=== PATIENT | male | born 1945 | race Caucasian/White ===

== ENCOUNTER 2020-05-16 02:19 | Observation (INO) ==
[2020-05-16 04:01] LABS: ABS Lymphocytes 0.6 10^3/ul (1.0-4.8); ABS Monocytes 0.5 10^3/ul (0-0.8); ABS Neutrophils 14.3 10^3/ul (1.5-7.7); Eosinophil % 0.1 %; Hematocrit 41 % (42-52); Hemoglobin 14.2 g/dL (14.0-18.0); Lymphocyte % 3.6 %; Mean Corpuscular HGB Conc 34 g/dL (31-36); Mean Corpuscular Hemoglobin 32 pg (27-31); Mean Corpuscular Volume 92 fL (80-94); Mean Platelet Volume 7.4 fL (7.4-10.4); Platelet Count 211 10^3/uL (150-450); Red Blood Count 4.52 10^6 /uL (4.18-5.48); Red Cell Distribution Width 13 % (10-15); White Blood Count 15.4 10^3/uL (3.5-10.8)
[2020-05-16 04:07] LABS: Urine Appearance Cloudy; Urine Bilirubin Negative (Negative); Urine Blood 1+ (Negative); Urine Color Yellow; Urine Glucose Negative (Negative); Urine Ketones Negative (Negative); Urine Nitrite Positive (Negative); Urine Protein 3+(>=500 mg/dL) (Negative); Urine Specific Gravity 1.019 (1.010-1.030); Urine Urobilinogen Negative (Negative)
[2020-05-16 04:19] LABS: ALT 32 U/L (7-52); AST 31 U/L (13-39); Albumin 3.7 g/dL (3.2-5.2); Albumin/Globulin Ratio 1.4 (1-3); Alkaline Phosphatase 60 U/L (34-104); Anion Gap 7 mmol/L (2-11); BUN/Creatinine Ratio 28.4 (8-20); Blood Urea Nitrogen 29 mg/dL (6-24); CO2 Carbon Dioxide 25 mmol/L (22-32); Calcium 8.6 mg/dL (8.6-10.3); Chloride 101 mmol/L (101-111); EGFR African American 86.9 (>60); EGFR Non-African American 71.8 (>60); Globulin 2.7 g/dL (2-4); Glucose 108 mg/dL (70-100); Magnesium 1.7 mg/dL (1.9-2.7); Potassium 4.1 mmol/L (3.5-5.0); Sodium 133 mmol/L (135-145); Total Protein 6.4 g/dL (6.4-8.9); Urine Bacteria 1+ (Absent); Urine Red Blood Cell 2+(6-10/hpf) (Absent); Urine White Blood Cell 3+(>20/hpf) (Absent)
[2020-05-16 04:22] LABS: Troponin I 0.06 ng/mL (<0.03)
[2020-05-16] MEDS ORDERED: Piperacillin/Tazobac ADVAN 3.375 GM in NS 0.9% 100 ml BAG 100 ML IV ONE (04:25)
[2020-05-16] MEDS ORDERED: Magnesium Sulfate IV 1GM/100ML 1 GM/100 ML BAG IV ONE (05:03)
[2020-05-16 06:34] LABS: Troponin I 0.06 ng/mL (<0.03)
[2020-05-16] MEDS: Lactated Ringers 1000 ml BAG 1,000 ML IV SCH ×2 (07:12→10:12)
[2020-05-16] MEDS ORDERED: Al Hydrox/Mg Hydrox/Simet LIQ 30 ML UDC PO PRN (07:32)
[2020-05-16] MEDS ORDERED: Ondansetron 4 mg VIAL 2 MG/ML 2 ml VIAL IV PRN (07:32)
[2020-05-16] MEDS ORDERED: Senna TAB 8.6 mg TAB PO PRN (07:32)
[2020-05-16] MEDS: DULoxetine DR 20 mg CAP PO SCH (10:15)
[2020-05-16] MEDS ORDERED: Perflutren Lipid Microsphere 3 ML VIAL ONE (11:17)
[2020-05-16] MEDS: cefTRIAXone 1 gm/50 mL NS BAG 1 GM/50 ML BAG IVPB SCH (13:26)
[2020-05-16] MEDS: Heparin 5000 UNITS/ML 1 mL VIAL SUBCUT SCH ×2 (13:27→21:43)
[2020-05-16] MEDS: NS 0.9% 1000 ml BAG 1,000 ML IV SCH ×2 (15:24→23:45)
[2020-05-17] MEDS: Heparin 5000 UNITS/ML 1 mL VIAL SUBCUT SCH ×2 (05:37→12:58)
[2020-05-17 06:52] LABS: ABS Eosinophils 0.1 10^3/ul (0-0.6); ABS Lymphocytes 0.6 10^3/ul (1.0-4.8); ABS Neutrophils 11.4 10^3/ul (1.5-7.7); Eosinophil % 0.4 %; Hematocrit 39 % (42-52); Hemoglobin 13.3 g/dL (14.0-18.0); Lymphocyte % 4.9 %; Mean Corpuscular HGB Conc 34 g/dL (31-36); Mean Corpuscular Hemoglobin 32 pg (27-31); Mean Corpuscular Volume 95 fL (80-94); Mean Platelet Volume 7.6 fL (7.4-10.4); Platelet Count 170 10^3/uL (150-450); Red Blood Count 4.16 10^6 /uL (4.18-5.48); Red Cell Distribution Width 13 % (10-15); White Blood Count 13.1 10^3/uL (3.5-10.8)
[2020-05-17 07:12] LABS: BUN/Creatinine Ratio 20.4 (8-20); Calcium 8.6 mg/dL (8.6-10.3); EGFR African American 85.9 (>60); Magnesium 1.9 mg/dL (1.9-2.7); Potassium 4.1 mmol/L (3.5-5.0)
[2020-05-17] MEDS: DULoxetine DR 20 mg CAP PO SCH (07:48)
[2020-05-17] MEDS: NS 0.9% 1000 ml BAG 1,000 ML IV SCH (07:57)
[2020-05-17] MEDS: cefTRIAXone 1 gm/50 mL NS BAG 1 GM/50 ML BAG IVPB SCH (12:55)
[2020-05-17 13:38] VITALS: BP 112/60
== END 2020-05-17 16:41 | disposition home or self-care (01) ==
LOC: ED 02:19 → MEDTELE 02:19
PROVIDERS: ADMIT Pediatrics; ATTEND Hospitalist

== ENCOUNTER 2021-09-30 21:45 | Inpatient (IN) ==
[2021-09-30 23:00] LABS: Hematocrit 31 % (42-52); Hemoglobin 10.5 g/dL (14.0-18.0); Mean Corpuscular HGB Conc 34 g/dL (31-36); Mean Corpuscular Hemoglobin 31 pg (27-31); Mean Corpuscular Volume 93 fL (80-94); Mean Platelet Volume 7.5 fL (7.4-10.4); Platelet Count 362 10^3/uL (150-450); Red Blood Count 3.34 10^6 /uL (4.18-5.48); Red Cell Distribution Width 13 % (10-15); White Blood Count 9.3 10^3/uL (3.5-10.8)
[2021-09-30 23:17] LABS: ALT 18 U/L (7-52); AST 23 U/L (13-39); Albumin 3.4 g/dL (3.2-5.2); Albumin/Globulin Ratio 1.2 (1-3); Alkaline Phosphatase 42 U/L (35-149); Anion Gap 9 mmol/L (2-11); Blood Urea Nitrogen 25 mg/dL (6-24); CO2 Carbon Dioxide 24 mmol/L (22-32); Calcium 8.9 mg/dL (8.6-10.3); Chloride 101 mmol/L (101-111); Creatine Kinase 196 U/L (10-223); Globulin 2.9 g/dL (2-4); Glucose 115 mg/dL (70-100); Potassium 4.3 mmol/L (3.5-5.0); Sodium 134 mmol/L (135-145); Total Protein 6.3 g/dL (6.4-8.9); eGFR CKD-EPI 63.5 (>60)
[2021-09-30 23:19] LABS: Urine Appearance Clear; Urine Bilirubin Negative (Negative); Urine Blood Negative (Negative); Urine Color Amber; Urine Glucose Negative (Negative); Urine Ketones Negative (Negative); Urine Nitrite Negative (Negative); Urine Protein 2+(100 mg/dL) (Negative); Urine Specific Gravity 1.024 (1.002-1.030); Urine Urobilinogen Negative (Negative)
[2021-09-30 23:29] LABS: Urine Benzodiazepine Screen None Detected (None Detect); Urine Cannabinoids Screen None Detected (None Detect); Urine Opiates Screen None Detected (None Detect)
[2021-09-30 23:38] LABS: Rapid COVID-19 Molecular Undetected (Undetected)
[2021-09-30 23:39] LABS: Acetaminophen < 15 mcg/mL; Alcohol, S < 13 mg/dL (<13); Salicylate < 2.50 mg/dL (<30)
[2021-09-30] MEDS ORDERED: Iohexol 350 (CONTRAST) 500 ML MDV IV ONE (23:40)
[2021-09-30 23:41] LABS: Urine Bacteria Absent (Absent); Urine Red Blood Cell Absent (Absent); Urine White Blood Cell Trace(0-5/hpf) (Absent)
[2021-09-30] MEDS ORDERED: NS 0.9% 1000 ml BAG 1,000 ML IV ONE (23:49)
[2021-09-30 23:56] LABS: Troponin I 0.02 ng/mL (<0.03)
[2021-10-01 00:37] LABS: RBC Morphology Normal (Normal)
[2021-10-01 00:38] LABS: ABS Basophils 0.1 10^3/ul (0-0.2); ABS Eosinophils 0.3 10^3/ul (0-0.6); ABS Lymphocytes 1.1 10^3/ul (1.0-4.8); ABS Neutrophils 6.9 10^3/ul (1.5-7.7); Eosinophil % 2.8 %; Lymphocyte % 12.2 %
[2021-10-01] MEDS ORDERED: Enoxaparin 100 MG/ML SYR SUBCUT ONE (01:18)
[2021-10-01] MEDS ORDERED: oxyCODONE/Acetamin 5/325 mg TAB PO PRN (02:29)
[2021-10-01] MEDS ORDERED: Ondansetron 4 mg VIAL 2 MG/ML 2 ml VIAL IV PRN (02:29)
[2021-10-01] MEDS ORDERED: Azithromycin 500 mg/250 mL NS IVPB ONE (03:30)
[2021-10-01 06:17] LABS: Hematocrit 27 % (42-52); Hemoglobin 9.4 g/dL (14.0-18.0); Mean Corpuscular HGB Conc 35 g/dL (31-36); Mean Corpuscular Hemoglobin 32 pg (27-31); Mean Corpuscular Volume 93 fL (80-94); Mean Platelet Volume 7.1 fL (7.4-10.4); Platelet Count 314 10^3/uL (150-450); Red Blood Count 2.92 10^6 /uL (4.18-5.48); Red Cell Distribution Width 13 % (10-15); White Blood Count 7.3 10^3/uL (3.5-10.8)
[2021-10-01 06:31] LABS: ABS Eosinophils 0.4 10^3/ul (0-0.6); ABS Lymphocytes 1.1 10^3/ul (1.0-4.8); ABS Neutrophils 4.9 10^3/ul (1.5-7.7); Calcium 8.1 mg/dL (8.6-10.3); Eosinophil % 5.4 %; Lymphocyte % 14.4 %; Potassium 4.3 mmol/L (3.5-5.0)
[2021-10-01 06:32] LABS: INR 1.32 (0.86-1.15)
[2021-10-01 07:39] LABS: Troponin I 0.02 ng/mL (<0.03)
[2021-10-01] MEDS ORDERED: Perflutren Lipid Microsphere 3 ML VIAL ONE (14:15)
[2021-10-01] MEDS ORDERED: Magnesium Hydroxide LIQ 30 ML UDC PO ONE (22:40)
[2021-10-02] MEDS: cefTRIAXone 1 gm/50 mL NS BAG 1 GM/50 ML BAG IVPB SCH (02:57)
[2021-10-02] MEDS ORDERED: Azithromycin 500 mg/250 ml NS 500 MG/250 ML BAG IVPB SCH (03:30)
[2021-10-02 08:23] LABS: Rheumatoid Factor < 10 IU/mL (<15)
[2021-10-02] MEDS: ALFUZOSIN 10 MG PO SCH (09:19)
[2021-10-02 14:35] LABS: Magnesium 2.2 mg/dL (1.9-2.7)
[2021-10-02 14:36] LABS: C Reactive Protein 154.77 mg/L (<8.01)
[2021-10-02 15:42] LABS: HIV 4th Generation Nonreactive (Nonreactive)
[2021-10-02] MEDS: DOXYcycline 100 MG in NS 0.9% 250 ml 250 ML IVPB SCH (20:57)
[2021-10-03 01:27] LABS: Bordetella parapertussis PCR Negative; Bordetella pertussis PCR Negative
[2021-10-03] MEDS: cefTRIAXone 1 gm/50 mL NS BAG 1 GM/50 ML BAG IVPB SCH (03:10)
[2021-10-03] MEDS: ALFUZOSIN 10 MG PO SCH (09:24)
[2021-10-03] MEDS: DOXYcycline 100 MG in NS 0.9% 250 ml 250 ML IVPB SCH (10:19)
[2021-10-03] MEDS ORDERED: Regadenoson 0.4 MG/5 ML SYRINGE ONE (11:40)
[2021-10-03] MEDS ORDERED: Aminophylline 25 MG/ML VIAL ONE (11:40)
[2021-10-03 15:40] VITALS: BP 127/65
[2021-10-03 19:24] LABS: Anti SSA/RO Antibody <0.2 U
[2021-10-03 22:31] LABS: Enterovirus Source NASAL
[2021-10-03 22:57] LABS: Mycoplasma Pneumoniae PCR Negative; Mycoplasma Pneumoniae Source Nasal
[2021-10-04 12:09] LABS: Cyclic Citrullinated Pept IgG <15.6 U
[2021-10-04 14:14] LABS: Adenovirus Result Negative (Negative)
== END 2021-10-03 16:50 | disposition home or self-care (01) | DRG 196 ==
LOC: ED 21:45 → EDHOLD 10-01 02:21 → SUATTDRO 10-01 02:21 → MED 10-01 11:20
PROVIDERS: ADMIT Internal Medicine; ATTEND Hospitalist